=== PATIENT | female | born 1960 | race Caucasian/White ===

== ENCOUNTER 2024-04-10 20:41 | Inpatient (IN) | payer OTHER ==
[2024-04-10] MEDS ORDERED: FAMOTIDINE 20 MG/50 ML IVPB 20 MG/50 ML MG IVPB ONE (21:21)
[2024-04-10] MEDS: FAMOTIDINE 20 MG/50 ML IVPB 20 MG/50 ML MG IVPB ONE (21:30)
[2024-04-10] MEDS: SODIUM CHLORIDE 0.9% 1000 ML INFUS.BAG IV ONE ×2 (21:30→23:03)
[2024-04-10 21:40] LABS: VENOUS BASE EXCESS -0.3 mmol/L (-2-2); VENOUS O2 SATURATION 46.1 % (70-80); VENOUS PCO2 41.3 mmHg (38-52); VENOUS PH 7.393 (7.310-7.410)
[2024-04-10 21:43] LABS: HEMATOCRIT 47.9 % (32.4-45.2); HEMOGLOBIN 16.3 GM/dL (10.7-15.3); MCH 31.5 pg (25.7-33.7); MEAN CELL VOLUME 92.8 fl (80-96); MEAN PLT VOLUME 8.2 fl (7.5-11.1); PLATELET COUNT 320 10^3/uL (134-434); RBC 5.16 M/mm3 (3.60-5.2); RDW 13.9 % (11.6-15.6); WHITE BLOOD COUNT 10.3 K/mm3 (4.0-10.0)
[2024-04-10 21:50] LABS: INR 1.04 (0.83-1.09); PROTHROMBIN TIME (PATIENT) 11.9 SEC (9.7-13.0)
[2024-04-10 21:52] LABS: ACTIVATED PTT 31.7 SECONDS (25.2-36.5)
[2024-04-10 22:02] LABS: POTASSIUM 3.1 mmol/L (3.5-5.1)
[2024-04-10 22:04] LABS: CALCIUM 10.6 mg/dL (8.5-10.1)
[2024-04-10 22:05] LABS: BLOOD UREA NITROGEN 7.5 mg/dL (7-18); MAGNESIUM 2.1 mg/dL (1.8-2.4)
[2024-04-10 22:08] LABS: CREATININE 1.2 mg/dL (0.55-1.3)
[2024-04-10 22:09] LABS: BILIRUBIN,TOTAL 0.3 mg/dL (0.2-1); TOT PROT 7.9 g/dl (6.4-8.2)
[2024-04-10 22:11] LABS: LACTIC ACID 5.4 mmol/L (0.4-2.0)
[2024-04-10 22:54] LABS: ANISOCYTOSIS 0; MACROCYTOSIS 0
[2024-04-10 23:09] LABS: EPI CELLS >36 /uL (0-25.1); HYALINE CASTS 11 /uL (0-3.1); PH,URINE 7.5 (5.0-8.0); URINE APPEARANCE CLOUDY; URINE BACTERIA 2954 /uL (0-1359); URINE BILIRUBIN NEGATIVE (NEGATIVE); URINE COLOR YELLOW; URINE GLUCOSE (UA) NEGATIVE (NEGATIVE); URINE KETONE TRACE (NEGATIVE); URINE LEUK ESTERASE 2+ (NEGATIVE); URINE NITRITE NEGATIVE (NEGATIVE); URINE PROTEIN 2+ (NEGATIVE); URINE RBC 20 /uL (0-23.9); URINE WBC 461 /uL (0-25.8)
[2024-04-10 23:10] LABS: URINE AMPHETAMINES NEGATIVE (NEGATIVE)
[2024-04-10 23:11] LABS: COCAINE, UR NEGATIVE (NEGATIVE); METHADONE, UR NEGATIVE (NEGATIVE); OPIATES, URI NEGATIVE (NEGATIVE); PHENCYCLIDINE,URINE NEGATIVE (NEGATIVE); URINE BENZODIAZEPINES NEGATIVE (NEGATIVE)
[2024-04-10 23:12] LABS: URINE BARBITURATES NEGATIVE (NEGATIVE)
[2024-04-10] MEDS ORDERED: CEFTRIAXONE 1 GM/50 ML BAG ONE (23:22)
[2024-04-10] MEDS: CEFTRIAXONE 1 GM in DEXTROSE 5%-WATER - 100 ML IVPB ONE (23:31)
[2024-04-10 23:33] LABS: URINE CRYSTALS PRESENT /hpf
[2024-04-10] MEDS ORDERED: AZITHROMYCIN IVPB 500 MG/250 ML BAG IVPB ONE (23:43)
[2024-04-10] MEDS: AZITHROMYCIN IVPB 500 MG in DEXTROSE 5%-WATER - 250 ML IVPB ONE (23:45)
[2024-04-11] MEDS ORDERED: POTASSIUM CHLORIDE ORAL LIQUID 20 MEQ/15 ML ONE (00:06)
[2024-04-11] MEDS: POTASSIUM CHLORIDE TABS 20 MEQ TABLET.ER (FP) PO ONE (00:07)
[2024-04-11] MEDS ORDERED: MAG HYDROX/AL HYDROX/SIMETH 30 ML UNIT-DOSE CUP ONE (00:18)
[2024-04-11] MEDS: MAG HYDROX/AL HYDROX/SIMETH 30 ML UNIT-DOSE CUP PO ONE (00:19)
[2024-04-11] MEDS ORDERED: SODIUM CHLORIDE 0.9%/KCL 20 MEQ/1,000 ML INFUS.BAG IV SCH (05:15)
[2024-04-11 06:02] VITALS: BMI 62.8
[2024-04-11 09:42] LABS: BASO % 0.7 % (0-2.0); EOS % 2.2 % (0-4.5); HEMATOCRIT 36.8 % (32.4-45.2); HEMOGLOBIN 12.2 GM/dL (10.7-15.3); LYMPH % 57.4 % (8-40); MCH 31.1 pg (25.7-33.7); MCHC 33.3 g/dl (32.0-36.0); MEAN CELL VOLUME 93.4 fl (80-96); MEAN PLT VOLUME 8.4 fl (7.5-11.1); MONO % 6.7 % (3.8-10.2); PLATELET COUNT 233 10^3/uL (134-434); RBC 3.94 M/mm3 (3.60-5.2); RDW 13.6 % (11.6-15.6); WHITE BLOOD COUNT 5.5 K/mm3 (4.0-10.0)
[2024-04-11] MEDS ORDERED: AZITHROMYCIN IVPB 500 MG/250 ML BAG IVPB SCH (10:00)
[2024-04-11 10:06] LABS: POTASSIUM 3.9 mmol/L (3.5-5.1)
[2024-04-11 10:08] LABS: ALBUMIN 3.2 g/dl (3.4-5.0); CALCIUM 9.1 mg/dL (8.5-10.1)
[2024-04-11 10:09] LABS: BLOOD UREA NITROGEN 5.8 mg/dL (7-18)
[2024-04-11 10:11] LABS: CREATININE 0.6 mg/dL (0.55-1.3); PHOSPHOROUS 3.1 mg/dL (2.5-4.9)
[2024-04-11 10:13] LABS: BILIRUBIN,TOTAL 0.3 mg/dL (0.2-1); TOT PROT 6.5 g/dl (6.4-8.2)
[2024-04-11] MEDS: ACETAMINOPHEN 1000 MG/100 ML BAG IVPB PRN (10:21)
[2024-04-11] MEDS: ENOXAPARIN NA (PORCINE) 40 MG/0.4 ML DISP.SYRIN SQ SCH (10:22)
[2024-04-11] MEDS: CEFTRIAXONE 1 GM in DEXTROSE 5%-WATER - 50 ML IVPB SCH (11:34)
[2024-04-11] MEDS: SODIUM CHLORIDE 1,000 ML with POTASSIUM CHLORIDE 40 MEQ IV SCH (11:38)
[2024-04-11] MEDS: ONDANSETRON 4 MG/2 ML VIAL IVPUSH PRN (15:51)
[2024-04-11] MEDS: MAG HYDROX/AL HYDROX/SIMETH 30 ML UNIT-DOSE CUP PO PRN (15:51)
[2024-04-11] MEDS ORDERED: QUEtiapine FUMARATE 25 MG TABLET PO SCH (22:00)
[2024-04-11] MEDS: LORazepam 2 MG/ML SDV VIAL IVPUSH PRN (23:57)
[2024-04-12] MEDS: POTASSIUM CHLORIDE 40 MEQ in SODIUM CHLORIDE 1,000 ML IV SCH (06:19)
[2024-04-12] MEDS: LEVOTHYROXINE NA 25 MCG TABLET (FP) PO SCH (06:19)
[2024-04-12 08:52] LABS: EOS % 4.4 % (0-4.5); HEMATOCRIT 37.9 % (32.4-45.2); HEMOGLOBIN 12.8 GM/dL (10.7-15.3); LYMPH % 57.8 % (8-40); MCH 31.4 pg (25.7-33.7); MCHC 33.9 g/dl (32.0-36.0); MEAN CELL VOLUME 92.5 fl (80-96); MEAN PLT VOLUME 8.1 fl (7.5-11.1); MONO % 5.3 % (3.8-10.2); NEUT % 31.5 % (42.8-82.8); PLATELET COUNT 238 10^3/uL (134-434); RBC 4.09 M/mm3 (3.60-5.2); RDW 13.9 % (11.6-15.6); WHITE BLOOD COUNT 4.7 K/mm3 (4.0-10.0)
[2024-04-12 09:07] LABS: CALCIUM 9.1 mg/dL (8.5-10.1)
[2024-04-12 09:08] LABS: BLOOD UREA NITROGEN 4.6 mg/dL (7-18)
[2024-04-12 09:11] LABS: CREATININE 0.8 mg/dL (0.55-1.3)
[2024-04-12] MEDS: QUEtiapine FUMARATE 25 MG TABLET PO SCH (09:53)
[2024-04-12] MEDS: PARoxetine HCL 20 MG TABLET PO SCH (10:04)
[2024-04-12] MEDS: LACTATED RINGERS SOLUTION 1,000 ML/1,000 ML INFUS.BAG IV SCH (19:27)
[2024-04-13 08:46] LABS: BASO % 1.1 % (0-2.0); EOS % 5.9 % (0-4.5); HEMATOCRIT 38.8 % (32.4-45.2); HEMOGLOBIN 12.9 GM/dL (10.7-15.3); LYMPH % 54.7 % (8-40); MCH 30.8 pg (25.7-33.7); MCHC 33.3 g/dl (32.0-36.0); MEAN CELL VOLUME 92.5 fl (80-96); MEAN PLT VOLUME 8.1 fl (7.5-11.1); MONO % 7.4 % (3.8-10.2); NEUT % 30.9 % (42.8-82.8); PLATELET COUNT 245 10^3/uL (134-434); RBC 4.19 M/mm3 (3.60-5.2); RDW 13.6 % (11.6-15.6); WHITE BLOOD COUNT 4.7 K/mm3 (4.0-10.0)
[2024-04-13 09:10] LABS: POTASSIUM 4.3 mmol/L (3.5-5.1)
[2024-04-13 09:24] LABS: CALCIUM 9.5 mg/dL (8.5-10.1)
[2024-04-13 09:25] LABS: BLOOD UREA NITROGEN 5.7 mg/dL (7-18)
[2024-04-13 09:28] LABS: CREATININE 0.7 mg/dL (0.55-1.3)
[2024-04-14 08:32] LABS: HEMATOCRIT 39.2 % (32.4-45.2); HEMOGLOBIN 13.2 GM/dL (10.7-15.3); MCH 31.3 pg (25.7-33.7); MCHC 33.6 g/dl (32.0-36.0); MEAN CELL VOLUME 93.2 fl (80-96); MEAN PLT VOLUME 8.3 fl (7.5-11.1); PLATELET COUNT 248 10^3/uL (134-434); RBC 4.21 M/mm3 (3.60-5.2); RDW 13.5 % (11.6-15.6); WHITE BLOOD COUNT 4.4 K/mm3 (4.0-10.0)
[2024-04-14 08:44] LABS: POTASSIUM 4.4 mmol/L (3.5-5.1)
[2024-04-14 08:51] LABS: CALCIUM 9.4 mg/dL (8.5-10.1)
[2024-04-14 08:52] LABS: ALBUMIN 3.4 g/dl (3.4-5.0); BLOOD UREA NITROGEN 10.9 mg/dL (7-18); MAGNESIUM 2.2 mg/dL (1.8-2.4)
[2024-04-14 08:55] LABS: CREATININE 0.7 mg/dL (0.55-1.3); PHOSPHOROUS 4.4 mg/dL (2.5-4.9)
[2024-04-14 08:56] LABS: BILIRUBIN,TOTAL 0.4 mg/dL (0.2-1)
[2024-04-14 08:57] LABS: TOT PROT 6.6 g/dl (6.4-8.2)
[2024-04-14 15:12] VITALS: BP 116/74; PULSE 84; RESP 17; TEMP 98.4
== END 2024-04-14 16:26 | disposition home or self-care (01) | DRG 720 ==
LOC: JER 20:41 → JERBED 04-11 01:35 → J7W 04-11 02:53 → OBSVTOIN 04-11 03:33
PROVIDERS: ADMIT Internal Medicine; ATTEND Internal Medicine
DX: A41.9 Sepsis, unspecified organism (principal); E87.20 Acidosis, unspecified; F33.9 Major depressive disorder, recurrent, unspecified; N17.9 Acute kidney failure, unspecified; A09 Infectious gastroenteritis and colitis, unspecified; E03.9 Hypothyroidism, unspecified; E86.1 Hypovolemia; E87.6 Hypokalemia; J98.11 Atelectasis; R65.20 Severe sepsis without septic shock; K21.9 Gastro-esophageal reflux disease without esophagitis
CPT/HCPCS: 0241U-QW; 36415; 71045-TC-FY; 71250-TC; 74176-TC; 80048; 80053; 80307; 81003; 82803; 83605; 83690; 83735; 84100; 84439; 84443; 84484; 85025; 85027; 85610; 85730; 87086; 87899; 93005; 93010; 99285-25; G0378; J0131

== ENCOUNTER 2024-05-11 19:53 | Emergency (ER) | payer OTHER ==
[2024-05-11 20:01] VITALS: BP 106/75; PULSE 99; RESP 18; TEMP 98.3; BMI 27.8
[2024-05-11] MEDS ORDERED: PANTOPRAZOLE SODIUM 40 MG VIAL ONE (20:45)
[2024-05-11] MEDS ORDERED: ACETAMINOPHEN INJECTION 100 ML ONE (20:45)
[2024-05-11] MEDS ORDERED: ONDANSETRON 4 MG/2 ML VIAL ONE (20:45)
[2024-05-11] MEDS: ONDANSETRON 4 MG/2 ML VIAL IVPUSH ONE (21:32)
[2024-05-11] MEDS: PANTOPRAZOLE SODIUM 40 MG VIAL IVPUSH ONE (21:32)
[2024-05-11] MEDS: ACETAMINOPHEN 1000 MG/100 ML BAG IVPB ONE (21:32)
[2024-05-11] MEDS: LACTATED RINGERS SOLUTION 1000 ML INFUS.BAG IV ONE (21:32)
[2024-05-11 21:52] LABS: HEMATOCRIT 39.3 % (32.4-45.2); HEMOGLOBIN 13.3 GM/dL (10.7-15.3); MCH 31.5 pg (25.7-33.7); MCHC 33.8 g/dl (32.0-36.0); MEAN CELL VOLUME 93.1 fl (80-96); MEAN PLT VOLUME 8.4 fl (7.5-11.1); PLATELET COUNT 257 10^3/uL (134-434); RBC 4.22 M/mm3 (3.60-5.2); RDW 14.3 % (11.6-15.6); WHITE BLOOD COUNT 6.1 K/mm3 (4.0-10.0)
[2024-05-11 22:02] LABS: ALBUMIN 3.6 g/dl (3.4-5.0); BLOOD UREA NITROGEN 10.2 mg/dL (7-18); CALCIUM 9.8 mg/dL (8.5-10.1); INR 1.13 (0.83-1.09); PROTHROMBIN TIME (PATIENT) 12.7 SEC (9.7-13.0)
[2024-05-11 22:04] LABS: ACTIVATED PTT 32.4 SECONDS (25.2-36.5)
[2024-05-11 22:06] LABS: CREATININE 0.9 mg/dL (0.55-1.3); PHOSPHOROUS 3.2 mg/dL (2.5-4.9)
[2024-05-11 22:07] LABS: BILIRUBIN,TOTAL 0.3 mg/dL (0.2-1)
[2024-05-11 22:14] LABS: PH,URINE 7.5 (5.0-8.0); URINE APPEARANCE CLOUDY; URINE BILIRUBIN NEGATIVE (NEGATIVE); URINE COLOR YELLOW; URINE GLUCOSE (UA) NEGATIVE (NEGATIVE); URINE KETONE NEGATIVE (NEGATIVE); URINE LEUK ESTERASE NEGATIVE (NEGATIVE); URINE NITRITE NEGATIVE (NEGATIVE); URINE PROTEIN NEGATIVE (NEGATIVE); URINE UROBILINOGEN 0.2 mg/dL (0.2-1.0)
[2024-05-11 22:44] LABS: ANISOCYTOSIS 1+; MACROCYTOSIS 0; OVALOCYTE 1+
[2024-05-11 22:56] LABS: HIV INTERPRETATION NEGATIVE (NEGATIVE)
[2024-05-11] MEDS: SODIUM CHLORIDE 0.9% 500 ML INFUS.BAG IV ONE (23:04)
== END 2024-05-11 23:13 | disposition home or self-care (01) ==
LOC: JER 19:53
PROC: 3E033NZ Introduction of Analgesics, Hypnotics, Sedatives into Peripheral Vein, Percutaneous Approach (ICD-10-PCS; principal; 2024-05-11)
PROC: 3E033GC Introduction of Other Therapeutic Substance into Peripheral Vein, Percutaneous Approach (ICD-10-PCS; 2024-05-11)
PROC: 3E033GC Introduction of Other Therapeutic Substance into Peripheral Vein, Percutaneous Approach (ICD-10-PCS; 2024-05-11)
DX: R10.13 Epigastric pain (principal); R30.0 Dysuria; R35.0 Frequency of micturition; R31.9 Hematuria, unspecified
CPT/HCPCS: 36415; 71045-TC-FY; 74177-TC; 76705-TC; 80053; 81003; 83690; 83735; 84100; 84484; 85025; 85610; 85730; 86803; 87086; 87389; 93005; 93010; 99285-25; J0131; Q9967

== ENCOUNTER 2024-07-14 12:51 | Emergency (ER) | payer OTHER ==
[2024-07-14 13:06] VITALS: BP 158/89; PULSE 97; RESP 18; TEMP 98.6; BMI 47.5
[2024-07-14] MEDS ORDERED: diphenhydrAMINE HCL 25 MG CAPSULE (FP) PO ONE (14:15)
[2024-07-14] MEDS ORDERED: methylPREDNISolone NA SUCC 125 MG/2 ML VIAL ONE (14:15)
[2024-07-14] MEDS: diphenhydrAMINE HCL 25 MG CAPSULE (FP) PO ONE (14:21)
[2024-07-14] MEDS ORDERED: FAMOTIDINE 20 MG/50 ML IVPB 20 MG/50 ML MG IVPB ONE (14:21)
[2024-07-14] MEDS: methylPREDNISolone NA SUCC 125 MG/2 ML VIAL IVPB ONE (14:21)
[2024-07-14 14:29] LABS: BASO % 1.1 % (0-2.0); EOS % 1.4 % (0-4.5); HEMATOCRIT 46.5 % (32.4-45.2); HEMOGLOBIN 15.3 GM/dL (10.7-15.3); LYMPH % 47.9 % (8-40); MCH 30.9 pg (25.7-33.7); MCHC 32.9 g/dl (32.0-36.0); MEAN CELL VOLUME 93.8 fl (80-96); MEAN PLT VOLUME 8.3 fl (7.5-11.1); MONO % 6.2 % (3.8-10.2); NEUT % 43.4 % (42.8-82.8); PLATELET COUNT 297 10^3/uL (134-434); RBC 4.96 M/mm3 (3.60-5.2); RDW 13.2 % (11.6-15.6); WHITE BLOOD COUNT 5.3 K/mm3 (4.0-10.0)
[2024-07-14] MEDS: FAMOTIDINE 20 MG/50 ML IVPB 20 MG/50 ML MG IVPB ONE (14:53)
[2024-07-14 15:15] LABS: POTASSIUM 3.5 mmol/L (3.5-5.1)
[2024-07-14 15:20] LABS: ALBUMIN 4.3 g/dl (3.4-5.0); BLOOD UREA NITROGEN 8.9 mg/dL (7-18)
[2024-07-14 15:23] LABS: CREATININE 0.9 mg/dL (0.55-1.3)
[2024-07-14 15:24] LABS: BILIRUBIN,TOTAL 0.4 mg/dL (0.2-1); TOT PROT 7.9 g/dl (6.4-8.2)
[2024-07-14 15:26] LABS: CALCIUM 10.4 mg/dL (8.5-10.1)
== END 2024-07-14 16:51 | disposition home or self-care (01) ==
LOC: JER 12:51 → JERFT 12:51
PROC: 3E033GC Introduction of Other Therapeutic Substance into Peripheral Vein, Percutaneous Approach (ICD-10-PCS; principal; 2024-07-14)
PROC: 3E033GC Introduction of Other Therapeutic Substance into Peripheral Vein, Percutaneous Approach (ICD-10-PCS; 2024-07-14)
DX: L29.9 Pruritus, unspecified (principal)
CPT/HCPCS: 36415; 80053; 85025; 99284-25

== ENCOUNTER 2024-12-16 12:47 | Emergency (ER) | payer OTHER ==
[2024-12-16 12:59] VITALS: BMI 30.9
[2024-12-16] MEDS ORDERED: ACETAMINOPHEN INJECTION 100 ML ONE (14:09)
[2024-12-16 14:20] LABS: URINE APPEARANCE CLEAR; URINE BILIRUBIN NEGATIVE (NEGATIVE); URINE COLOR YELLOW; URINE GLUCOSE (UA) NEGATIVE (NEGATIVE); URINE KETONE NEGATIVE (NEGATIVE)
[2024-12-16 14:21] LABS: PH,URINE 5.5 (5.0-8.0); URINE LEUK ESTERASE NEGATIVE (NEGATIVE); URINE NITRITE NEGATIVE (NEGATIVE); URINE PROTEIN NEGATIVE (NEGATIVE); URINE UROBILINOGEN 0.2 mg/dL (0.2-1.0)
[2024-12-16] MEDS: ACETAMINOPHEN 1000 MG/100 ML BAG IVPB ONE (14:21)
[2024-12-16 15:05] LABS: ABSOLUTE IMMATURE GRANULOCYTES 0.01 x10^3/uL (0.0-0.031); BASOPHILS # 0.06 x10^3/uL (0.01-0.08); EOSINOPHIL % 1.5 % (0.7-5.8); EOSINOPHILS # 0.07 x10^3/uL (0.04-0.36); HEMATOCRIT 45.3 % (34.1-44.9); HEMOGLOBIN 14.6 g/dL (11.2-15.7); MCHC 32.2 g/dl (32.2-35.5); MEAN CELL VOLUME 89.9 fl (79.4-94.8); MEAN PLT VOLUME 9.2 fl (9.4-12.3); MONOCYTE # 0.29 x10^3/uL (0.24-0.86); MONOCYTE % 6.1 % (4.7-12.5); PLATELET COUNT 286 x10^3/uL (182-369); RDW 13.1 % (12.4-16.4)
[2024-12-16 15:07] LABS: POTASSIUM 4.4 mmol/L (3.5-5.1)
[2024-12-16 15:10] LABS: CALCIUM 9.9 mg/dL (8.5-10.1)
[2024-12-16 15:11] LABS: BLOOD UREA NITROGEN 11.5 mg/dL (7-18)
[2024-12-16 15:12] LABS: EPI CELLS 16 /uL (0-25.1); HYALINE CASTS 1 /uL (0-3.1); URINE BACTERIA 134 /uL (0-1359); URINE RBC 13 /uL (0-23.9); URINE WBC 144 /uL (0-25.8)
[2024-12-16 15:14] LABS: CREATININE 0.9 mg/dL (0.55-1.3)
[2024-12-16 15:15] LABS: BILIRUBIN,TOTAL 0.4 mg/dL (0.2-1)
[2024-12-16 15:16] LABS: TOT PROT 7.4 g/dl (6.4-8.2)
[2024-12-16 16:21] VITALS: BP 129/78; PULSE 72; RESP 19; TEMP 97.9
== END 2024-12-16 16:31 | disposition home or self-care (01) ==
LOC: JER 12:47
PROC: 3E033NZ Introduction of Analgesics, Hypnotics, Sedatives into Peripheral Vein, Percutaneous Approach (ICD-10-PCS; principal; 2024-12-16)
DX: N39.0 Urinary tract infection, site not specified (principal); R10.31 Right lower quadrant pain; R30.0 Dysuria; R35.0 Frequency of micturition
CPT/HCPCS: 36415; 74177-TC; 80053; 81003; 83690; 85025; 87086; 96374; 99285-25; J0131; Q9967